=== PATIENT | female | born 1970 | race Caucasian/White ===

== ENCOUNTER → 2025-02-05 | Outpatient (CLI) | payer OTHER, SELFPAY ==
--- NOTE | 2025-02-05 15:58 | EKG_ITS ---
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
== END | disposition home or self-care (01) ==
PROVIDERS: PCP Family Medicine; Referring Provider Family Medicine; Visit Provider Family Medicine
DX: Z01.818 Encounter for other preprocedural examination (principal)
CPT/HCPCS: 93005

== ENCOUNTER → 2025-02-19 | Outpatient (CLI) | payer OTHER, SELFPAY ==
--- NOTE | 2025-02-19 10:52 | XR_ITS ---
Examination: PA lateral chest 2 views Technique: Upright PA lateral chest 2 views Exam date and time: February 19, 2025 1203 hrs. Comparison 06/01/2022 Indications: Preop Findings: Stable granuloma right midlung Normal heart size No pneumonia or pulmonary edema Reverse right shoulder arthroplasty Impression: No active disease
== END | disposition home or self-care (01) ==
LOC: SDIM 10:28
PROVIDERS: PCP Family Medicine; Referring Provider Family Medicine; Visit Provider Family Medicine
DX: Z01.818 Encounter for other preprocedural examination (principal)
CPT/HCPCS: 71046

== ENCOUNTER → 2025-09-19 | Outpatient (CLI) | payer OTHER, MEDICAID, SELFPAY ==
--- NOTE | 2025-09-19 14:59 | XR_ITS ---
Examination: Knee, left, 3 views Technique: Knee AP, lateral, oblique 3 views Date and time of exam: September 19, 2025, 1506 hours INDICATIONS: Status post knee replacement in May 2025 pain and swelling 2 weeks. FINDINGS: Moderate osteopenia. Total left knee arthroplasty. Satisfactory alignment. No fracture. No loosening of the prosthetic components. Moderate knee effusion IMPRESSION: Total left knee arthroplasty with satisfactory alignment No fracture
== END | disposition home or self-care (01) ==
LOC: CDIM 14:50
PROVIDERS: PCP Family Medicine; Referring Provider Family Medicine; Visit Provider Family Medicine
DX: M25.562 Pain in left knee (principal); Z96.652 Presence of left artificial knee joint
CPT/HCPCS: 73562